=== PATIENT | female | born 1980 | race African-American/Black ===

== ENCOUNTER 2016-03-06 20:58 | Emergency (ER) | payer OTHER ==
[2016-03-07] MEDS ORDERED: FLEXERIL PO ONE (03:05)
[2016-03-07] MEDS ORDERED: TORADOL IM ONE (03:05)
--- NOTE | 2016-03-07 03:07 | Emergency Department Report ---
HPI - General Chief Complaint: Back Pain/Injury Time Seen by Provider: 03/07/16 02:42 - HPI HPI: 35-year-old female presents today with right-sided lower back pain radiating down her right leg since yesterday. Patient states the pain started post rolling over in bed. Describes her pain as a 10 out of 10 constant, sharp pain. Denies numbness, weakness, paresthesias. Denies bowel or bladder incontinence. Denies history of similar symptoms. Denies fever, chills, nausea , vomiting, chest pain, shortness of breath, abdominal pain. ED Past Medical Hx - Past Medical History Previous Medical History?: Yes Hx Hypertension: Yes Hx Headaches / Migraines: Yes - Surgical History Past Surgical History?: Yes Additional Surgical History: Tubaligation, Right knee scope, Emergency laparoscopy - Social History Smoking Status: Never Smoker Substance Use Type: Alcohol - Medications Home Medications: Home Medications Medication Instructions Recorded Confirmed Last Taken Type Cyclobenzaprine [Flexeril] 10 mg PO TID PRN #20 tablet 03/07/16 Unknown Rx Naproxen [Naprosyn] 500 mg PO BID #30 tablet 03/07/16 Unknown Rx ED Review of Systems ROS: Stated complaint: RT LOWER BACK & RT LEG PAIN Other details as noted in HPI Constitutional: denies: chills, fever, malaise Eyes: denies: eye pain ENT: denies: ear pain, throat pain, congestion Respiratory: denies: cough, shortness of breath, wheezing Cardiovascular: denies: chest pain, palpitations Endocrine: no symptoms reported Gastrointestinal: denies: abdominal pain, nausea, vomiting Musculoskeletal: back pain Skin: denies: rash Neurological: denies: headache, weakness, numbness, paresthesias Physical Exam - Physical Exam Vital Signs: Vital Signs 03/06/16 21:12 Temperature 97.9 F Pulse Rate 80 Respiratory 18 Rate Blood Pressure 147/100 O2 Sat by Pulse 99 Oximetry Physical Exam: GENERAL: The patient is well-developed and well-nourished. Patient is in NAD. HEAD: Normocephalic. Atraumatic. CHEST/LUNGS: Clear to auscultation throughout. HEART/CARDIOVASCULAR: Regular rate and rhythm. No murmurs, rubs or gallops. ABDOMEN: Abdomen is soft, nontender. Bowel sounds normoactive. No guarding or rebound tenderness. EXTREMITIES: Full range of motion. Peripheral pulses intact. Capillary refill less than 2 seconds. BACK: Full ROM. No midline tenderness. Right-sided paraspinal tenderness of lumbar region. Tenderness to palpation of the right sciatic notch. Negative straight leg raise bilaterally. NEURO: Alert and oriented x 3. Antalgic gait. ED Course Vital Signs 03/06/16 21:12 Temperature 97.9 F Pulse Rate 80 Respiratory 18 Rate Blood Pressure 147/100 O2 Sat by Pulse 99 Oximetry ED Medical Decision Making - Lab Data Vital Signs 03/06/16 21:12 Temperature 97.9 F Pulse Rate 80 Respiratory 18 Rate Blood Pressure 147/100 O2 Sat by Pulse 99 Oximetry - Medical Decision Making 35-year-old female presents today with lower back pain radiating down her right leg. Patient was given Flexeril and Toradol and reported symptomatic relief. Patient is in no acute distress at this time. She will be discharged home and is encouraged to follow up with a primary care provider. She will be sent home on Flexeril and naproxen and is encouraged to return to the emergency room for any worsening symptoms. Critical care attestation.: If time is entered above; I have spent that time in minutes in the direct care of this critically ill patient, excluding procedure time. ED Disposition Clinical Impression: Low back pain Qualifiers: Chronicity: acute Back pain laterality: right Sciatica presence: with sciatica Sciatica laterality: sciatica of right side Qualified Code(s): M54.41 - Lumbago with sciatica, right side Disposition: DISCHARGED TO HOME OR SELFCARE Is pt being admited?: No Does the pt Need Aspirin: No Condition: Stable Instructions: Sciatica (ED) Additional Instructions: Follow up with primary care provider. Return to the emergency department if symptoms worsen. Prescriptions: Cyclobenzaprine [Flexeril] 10 mg PO TID PRN #20 tablet PRN Reason: Muscle Spasm Naproxen [Naprosyn] 500 mg PO BID #30 tablet Referrals: GRACE DAVIS MD [Primary Care Provider] - 3-5 Days [facility] [Outside] - 3-5 Days ZACHERY PALACIOS MD [Staff Physician] - 3-5 Days Forms: Work/School Release Form(ED), Accompanied Note Time of Disposition: 03:07
[2016-03-07 03:16] VITALS: BP 139/98
== END 2016-03-07 03:37 | disposition home or self-care (01) ==
LOC: ED 20:58
DX: M54.41 Lumbago with sciatica, right side (principal); I10 Essential (primary) hypertension; G43.909 Migraine, unspecified, not intractable, without status migrainosus
CPT/HCPCS: 96372; 99282; J1885

== ENCOUNTER 2016-11-25 01:56 | Emergency (ER) | payer SELFPAY ==
[2016-11-25 06:04] VITALS: BP 145/89
== END 2016-11-25 10:53 | disposition left against medical advice (07) ==
LOC: ED 01:56
DX: Z53.21 Procedure and treatment not carried out due to patient leaving prior to being seen by health care provider (principal)